=== PATIENT | male | born 1960 | race Caucasian/White ===

== ENCOUNTER 2017-03-21 02:01 | Emergency (ER) | payer BC, OTHER ==
--- NOTE | 2017-03-21 02:37 | EDM.PDOC ---
ED HISTORY OF PRESENT ILLNESS - General Chief Complaint: Respiratory Problem Stated Complaint: HARD TIME BREATHING Time Seen by Provider: 03/21/17 02:28 Source of Information: Reports: Patient, RN - History of Present Illness INITIAL COMMENTS - FREE TEXT/NARRATIVE: he has a mild "cold". He had a stuffy nose and felt claustrophobic. He felt panicky. He took lorazepam and now feels close to normal. He feels that he did not really need to come in that he just had a panic attack that he treated and improved after arrival here. He felt panicky and dyspneic but now improved. - Related Data Allergies/ADRs: Allergies Allergy/AdvReac Type Severity Reaction Status Date / Time No Known Allergies Allergy Verified 03/21/17 02:03 Home Meds: Home Meds Allopurinol [Zyloprim] 100 mg PO DAILY 03/21/17 [History] Aspirin 81 mg PO ONETIME 03/21/17 [History] Escitalopram Oxalate [Lexapro] 20 mg PO DAILY 03/21/17 [History] Fenofibrate 160 mg PO DAILY 03/21/17 [History] Losartan [Cozaar] 100 mg PO DAILY 03/21/17 [History] Nebivolol HCl [Bystolic] 20 mg PO DAILY 03/21/17 [History] RABEprazole Sodium [Aciphex] 20 mg PO DAILY 03/21/17 [History] Past Medical History HEENT History: Reports: None Cardiovascular History: Reports: High cholesterol, Hypertension Respiratory History: Reports: None Gastrointestinal History: Reports: None Genitourinary History: Reports: None Musculoskeletal History: Reports: Fracture Neurological History: Reports: None Psychiatric History: Reports: Anxiety, Other (see below) (panic attacks.) Endocrine/Metabolic History: Reports: None Hematologic History: Reports: None Immunologic History: Reports: None Oncologic (Cancer) History: Reports: Other (see below) Other Oncologic History: testicular Dermatologic History: Reports: None - Infectious Disease History Infectious Disease History: Reports: None - Past Surgical History Head Surgeries/Procedures: Reports: None HEENT Surgical History: Reports: None Cardiovascular Surgical History: Reports: None GI Surgical History: Reports: Appendectomy Male Surgical History: Reports: Other (see below) Other Male Surgeries/Procedures: testicular sx Musculoskeletal Surgical History: Reports: Other (see below) Other Musculoskeletal Surgeries/Procedures:: left foot sx Social & Family History - Tobacco Use Smoking Status *Q: Never Smoker - Caffeine Use Caffeine Use: Reports: Coffee - Recreational Drug Use Recreational Drug Use: No ED ROS GENERAL - Review of Systems Review Of Systems: See Below Constitutional: Denies: fever Respiratory: Reports: Shortness of Breath (improved now. ), Cough ED EXAM, GENERAL - Physical Exam Exam: See Below General Appearance: alert, no apparent distress Ears: normal external exam Throat/Mouth: Normal lips, Normal voice Head: atraumatic Respiratory/Chest: no respiratory distress, lungs clear, normal breath sounds, no accessory muscle use Cardiovascular: regular rate, rhythm, no murmur Course - Vital Signs Last Recorded V/S: Last Vital Signs Temp 96.3 F 03/21/17 02:06 Pulse 82 03/21/17 02:17 Resp 17 03/21/17 02:17 BP 137/96 H 03/21/17 02:17 Pulse Ox 97 03/21/17 02:17 Departure - Departure Time of Disposition: 02:35 Disposition: Home, Self-Care 01 Condition: good Clinical Impression: Panic attack, Viral URI Forms: ED Department Discharge Additional Instructions: recheck as needed.
[2017-03-21 02:54] VITALS: BP 135/85
== END 2017-03-21 02:42 | disposition home or self-care (01) ==
LOC: MW.ED 02:01
DX: F41.0 Panic disorder [episodic paroxysmal anxiety] (principal); J06.9 Acute upper respiratory infection, unspecified; B97.89 Other viral agents as the cause of diseases classified elsewhere; E78.00 Pure hypercholesterolemia, unspecified; I10 Essential (primary) hypertension; F41.9 Anxiety disorder, unspecified; Z90.49 Acquired absence of other specified parts of digestive tract; Z79.82 Long term (current) use of aspirin; Z79.899 Other long term (current) drug therapy
CPT/HCPCS: 99282; 99284